=== PATIENT | female | born 1980 | race Caucasian/White ===

== ENCOUNTER 2019-10-02 15:13 | Emergency (ER) | payer MEDICAID, SELFPAY ==
[2019-10-02 15:13] VITALS: BP 119/76; PULSE 91; RESP 18; O2SAT 97
[2019-10-02 15:17] VITALS: BP 119/83; PULSE 94; RESP 17; TEMP 37.2; O2SAT 95; BMI 27.4
--- NOTE | 2019-10-02 15:21 | XR_ITS ---
PROCEDURE: XR CHEST PORTABLE CLINICAL HISTORY: chest pain COMPARISON: No exams were available for comparison FINDINGS: The cardiomediastinal silhouette and pulmonary vascularity are within normal limits. The lungs are clear without infiltrates, suspicious nodules, or pleural effusions. There is a 3 mm opacity in the left midlung overlying the 3rd rib and may be due to an summation density or small granuloma. No acute bony abnormalities. IMPRESSION: No acute findings. Dictated by: Hever Asher MD 10/02/2019 16:16 Hever Asher MD in [place] 10/02/2019 16:16
--- NOTE | 2019-10-02 15:26 | ECG_ITS ---
APPROVED REPORT Exam: Resting ECG HR:94 bpm ECG Measurements Heart Rate 94 AXES NH 144 P QRSd 74 QRS 134 QT 362 T 130 QTc 452 <Conclusion> Normal sinus rhythm Right axis deviation Abnormal ECG Electronically signed by : Lizandro Mao, 10/03/2019 07:11:52
--- NOTE | 2019-10-02 15:32 | [facility].EDSEIZ ---
ED Disposition Clinical Impression: Generalized seizure, Nonspecific chest pain Disposition: Home, Self-Care Condition on Discharge: Fair Instructions: DI for Seizure Disorder -- Adult Referrals: PCP,No [Primary Care Provider] - - Critical Care Critical Care Time: No Attestation: On 10/02/19, the high probability of a clinically significant, sudden or life threatening deterioration of the following system(s) required my full and direct attention, intervention and personal management. The time I documented below is in addition to time spent performing reported procedures but includes the following listed in this critical care notation. Medical Decision Making - Jose Inquiry Pt receiving controlled substance: No Vital Signs: 10/02/19 15:13 10/02/19 15:17 10/02/19 15:43 Temperature 98.9 F Temperature Source Oral Pulse Rate [Right Brachial] 91 H 94 H 114 H Respiratory Rate 18 17 Blood Pressure [Right Arm] 119/76 119/83 88/64 L Blood Pressure Mean [Right Arm] 90 95 72 Blood Pressure Source [Right Arm] Automatic Cuff Automatic Cuff Blood Pressure Position [Right Arm] Supine Supine 02 Sat by Pulse Oximetry 97 95 92 L Oxygen Delivery Method Room Air Room Air Room Air - Lab Data Lab Results 10/02/19 15:49: WBC 3.9 L, RBC 4.89, Hgb 14.9, Hct 43.8, MCV 89.6, MCH 30.5, MCHC 34.0, RDW 12.9, Plt Count 208, MPV 7.4, Neut % (Auto) 54.9, Lymph % (Auto) 35.8, [place] % (Auto) 6.8, Eos % (Auto) 2.0, Baso % (Auto) 0.5, Neut # (Auto) 2.1, Lymph # (Auto) 1.4, [place] # (Auto) 0.3, Eos # (Auto) 0.1, Baso # (Auto) 0.0 10/02/19 15:49: Sodium 140, Potassium 3.6, Chloride 104, Carbon Dioxide 26, Anion Gap 13.6, BUN 8, Creatinine 0.60, Estimated Creat Clear 137, Estimated GFR 112, Est GFR ( Amer) 135, Glucose 111 H, Calcium 9.9, Total Bilirubin 0.5, AST 29, ALT 27, Alkaline Phosphatase 56, Troponin I < 0.01, Total Protein 7.5, Albumin 4.6, Globulin 2.9, Albumin/Globulin Ratio 1.6, Phenytoin < 3.0 L 10/02/19 15:49: Plasma/Serum Alcohol < 10 10/02/19 15:49: SARS-CoV-2 IgG Ab (Rapid) Negative, SARS-CoV-2 IgM Ab (Rapid) Negative 10/02/19 16:20: Urine HCG, Qual Negative 10/02/19 16:20: Urine Color Yellow, Urine Appearance Clear, Urine pH 7.5, Ur Specific [place] 1.015, Urine Protein Negative, Urine Glucose (UA) Negative, Urine Ketones Negative, Urine Blood Negative, Urine Nitrate Negative, Urine Bilirubin Negative, Urine Urobilinogen 2.0, Ur Leukocyte Esterase Negative Result diagrams: 10/02/19 15:49 10/02/19 15:49 Orders (Tests/Meds): ORDERS Category Date Time Status Drug Screen,Urine Stat Lab 10/02/19 16:20 Received Troponin I Q3H Lab 10/02/19 18:30 Ordered Troponin I Q3H Lab 10/02/19 21:30 Ordered Urinalysis and Microscopic Stat Lab 10/02/19 16:20 Received - ECG Data Tracing #1 EKG showed normal OH interval, normal QTC, found to potation was normal sinus rhythm with nonspecific changes ECG initial impression date: 10/02/19 ECG initial impression time: 15:28 - Reevaluation(s) Time: 16:39 Reevaluation #1: On reevaluation, patient is feeling much better. Chest pain-free. No seizure-like activity. Repeat neurologic exam is normal. Patient be discharged into police custody. Given strict return precautions. Verbalized understanding. Medical Decision Narrative: 39-year-old female presented to the emergency department with multiple complaints. She states that she had seizure-like activity as well as chest pain and coronavirus exposure. Work-up will be initiated. Patient has a normal neurologic exam at this time. Seizures HPI - General Chief Complaint: Seizure Stated Complaint: seizure Time Seen by Provider: 10/02/19 15:15 Mode of Arrival: EMS Limitations: No Limitations Description of Symptoms (Recalled from ER Triage Doc. by RN): pt presents to ed with c/o seizure while being detained by police while on her way to [place]. pt is awake and alert. states she has been exposed to covid and rep
[2019-10-02 15:43] VITALS: BP 88/64; PULSE 114; O2SAT 92
[2019-10-02 15:57] LABS: Basophils % 0.5 % (0.1-2.0); Eosinophils # 0.1 K/mm3 (0.0-0.4); Hematocrit 43.8 % (37.0-47.0); Hemoglobin 14.9 g/dL (12.2-16.2); Lymphocytes # 1.4 K/mm3 (0.7-4.5); Lymphocytes % 35.8 % (10-50); Mean Corpuscular Hemoglobin 30.5 pg (27.0-31.2); Mean Corpuscular Volume 89.6 fl (81-99); Mean Platelet Volume 7.4 fl (7.4-10.4); Monocytes # 0.3 K/mm3 (0.1-1.0); Monocytes % 6.8 % (1.7-9.3); Neutrophils # 2.1 K/mm3 (1.8-7.8); Neutrophils % 54.9 % (37.0-80.0); Platelet Count 208 K/mm3 (142-424); Red Blood Count 4.89 M/mm3 (4.20-5.40); Red Cell Distribution Width 12.9 % (11.5-17.5); White Blood Count 3.9 K/mm3 (4.8-10.8)
[2019-10-02 16:00] LABS: Chloride 104 mmol/L (98-107); Potassium 3.6 mmoL/L (3.5-5.1); Sodium 140 mmol/L (136-145)
[2019-10-02 16:03] LABS: Alanine Aminotransferase 27 U/L (12-78); Albumin Level 4.6 g/dl (3.5-5.0); Albumin/Globulin Ratio 1.6 (1.1-1.8); Alkaline Phosphatase 56 U/L (38-126); Anion Gap 13.6 mEq/L (5-15); Aspartate Amino Transferase 29 U/L (14-36); Bilirubin,Total 0.5 mg/dl (0.2-1.3); Blood Urea Nitrogen 8 mg/dl (7-17); Calcium 9.9 mg/dl (8.4-10.2); Carbon Dioxide 26 mmol/L (22.0-30.0); Creatinine Clearance Estimated 137 mL/min (50-200); Estimated Glomerular Filt Rate 112 ml/min (>60); GFR (African American) 135 ML/MIN (>60); Globulin 2.9 g/dL (1.3-3.2); Glucose 111 mg/dl (74-100); Total Protein,Serum 7.5 g/dl (6.3-8.2)
[2019-10-02 16:04] LABS: Ethyl Alcohol < 10 mg/dl (0-10)
[2019-10-02 16:17] LABS: Troponin I < 0.01 ng/ml (0.00-0.034)
[2019-10-02 16:27] LABS: Microscopic, Urine URINE MICROSCOPIC (MICROSCOPIC)
[2019-10-02 16:29] LABS: Coronavirus 19 IgG Antibody Negative (Negative); Coronavirus 19 IgM Antibody Negative (Negative); Phenytoin (Dilantin) < 3.0 ug/ml (10-20)
[2019-10-02 16:31] LABS: Urine Pregnancy, HCG Qual. Negative (Negative)
[2019-10-02 16:32] LABS: Appearance,Urine CLEAR (Clear); Bilirubin,Urine Negative (Negative); Blood, Urine Negative (Negative); Color,Urine YELLOW (Yellow); Glucose,Urine (UA) Negative (Negative); Ketones,Urine Negative (Negative); Leukocyte Esterase,Urine Negative (Negative); Nitrate,Urine Negative (Negative); PH,Urine 7.5 (5.0-8.5); Protein,Urine Negative (Negative); Specific Gravity, Urine 1.015 (1.005-1.030)
[2019-10-02 16:39] LABS: RBC,Urine Occasional #/hpf (0-3)
[2019-10-02 16:41] LABS: Benzodiazepines Screen,Urine Negative ng/ml (<200)
[2019-10-02 16:42] LABS: Amphetamine/Metha Screen,Urine Positive ng/ml (<1000); Barbiturates Screen,Urine Negative ng/ml (<200)
[2019-10-02 16:43] LABS: Cannabinoid Screen,Urine Positive ng/ml (<50); Cocaine Screen,Urine Negative ng/ml (<300)
[2019-10-02 16:44] LABS: Methadone Screen,Urine Negative ng/ml (<300)
[2019-10-02 16:45] LABS: Opiate Screen,Urine Negative ng/ml (<300)
[2019-10-02 16:46] VITALS: BP 110/64; PULSE 90; RESP 15; TEMP 37.2; O2SAT 99
[2019-10-02 16:46] LABS: Phencyclidine Screen,Urine Negative ng/ml (<25)
== END 2019-10-02 16:47 | disposition home or self-care (01) ==
PROVIDERS: Emergency Provider Emergency Medicine
DX: G40.909 Epilepsy, unspecified, not intractable, without status epilepticus (principal); R07.9 Chest pain, unspecified; Z20.828 Contact with and (suspected) exposure to other viral communicable diseases
CPT/HCPCS: 71045; 80053; 80185; 80305; 81001; 81025; 84484; 85025; 86328; 93005; 99284